=== PATIENT | male | born 1985 | race Caucasian/White ===

== ENCOUNTER 2017-01-08 13:32 | Emergency (ER) | payer OTHER ==
[~2017-01-08] VITALS: Ht 190.5 cm; Wt 105.6 kg
[2017-01-08 15:06] VITALS: BP 135/82
== END 2017-01-08 15:08 | disposition home or self-care (01) ==
LOC: M ED 15:07
DX: Z48.02 Encounter for removal of sutures (principal)

== ENCOUNTER 2017-04-03 22:22 | Emergency (ER) | payer OTHER ==
[~2017-04-03] VITALS: Ht 190.5 cm; Wt 100.0 kg
[2017-04-04] MEDS ORDERED: NORCOTAB PO (01:58)
[2017-04-04] MEDS ORDERED: CYCL10TA PO (01:58)
[2017-04-04] MEDS ORDERED: KETOROLAC TROMETHAMINE 10 MG TAB PO ONE (02:00)
[2017-04-04 02:07] VITALS: BP 135/81
== END 2017-04-04 02:07 | disposition home or self-care (01) ==
LOC: M ED 22:22
DX: M54.16 Radiculopathy, lumbar region (principal); G89.29 Other chronic pain; K21.9 Gastro-esophageal reflux disease without esophagitis; Z88.0 Allergy status to penicillin; Z88.1 Allergy status to other antibiotic agents; F17.210 Nicotine dependence, cigarettes, uncomplicated

== ENCOUNTER 2017-08-22 22:26 | Emergency (ER) | payer OTHER ==
[2017-08-22] MEDS: ONDANSETRON 4 MG ORAL DISINTEGRATING TAB (S0181) PO ×2 (23:04)
[2017-08-23] MEDS: AZITHROMYCIN 250 MG TAB PO ×2 (00:30)
[2017-08-23 00:45] LABS: INFLUENZA A AMPLIFICATION NEGATIVE (NEGATIVE); INFLUENZA B AMPLIFICATION NEGATIVE (NEGATIVE)
== END 2017-08-23 01:07 | disposition home or self-care (01) ==
LOC: M ED 08-23 01:07
DX: J02.0 Streptococcal pharyngitis (principal); F17.200 Nicotine dependence, unspecified, uncomplicated
CPT/HCPCS: 87502

== ENCOUNTER 2017-11-19 13:26 | Emergency (ER) | payer OTHER ==
[2017-11-19] MEDS: DERMABOND TOPICAL SKIN ADHESIVE TOP ×2 (14:00)
== END 2017-11-19 14:58 | disposition home or self-care (01) ==
LOC: M ED 13:26
DX: S01.411A Laceration without foreign body of right cheek and temporomandibular area, initial encounter (principal); Y04.8XXA Assault by other bodily force, initial encounter; Y92.098 Other place in other non-institutional residence as the place of occurrence of the external cause; F17.210 Nicotine dependence, cigarettes, uncomplicated; Z88.0 Allergy status to penicillin; Z88.1 Allergy status to other antibiotic agents; Z79.899 Other long term (current) drug therapy
CPT/HCPCS: 70486

== ENCOUNTER 2020-07-05 02:46 | Emergency (ER) | payer SELFPAY ==
[~2020-07-05 02:46] MED LIST: CYCL-707 PO; FLAG500T PO; HYDR-3715 PO; IBUP-1114 PO; OMEP10CASR PO; ZITHTAB PO
[2020-07-05 02:47] VITALS: BP 138/87
[2020-07-05] MEDS ORDERED: PRED20TA PO (04:47)
== END 2020-07-05 02:55 | disposition left against medical advice (07) ==
LOC: M ED 02:46
DX: Z53.21 Procedure and treatment not carried out due to patient leaving prior to being seen by health care provider (principal)

== ENCOUNTER → 2020-08-06 | Outpatient (REF) | payer OTHER ==
[~2020-08-06] MED LIST changes: +PRED20TA PO
== END ==
LOC: M LAB REF 15:21
PROVIDERS: ATTEND Otolaryngology
DX: K11.5 Sialolithiasis (principal)

== ENCOUNTER 2020-09-28 16:38 | Emergency (ER) | payer OTHER ==
[~2020-09-28] VITALS: Ht 188 cm; Wt 125.2 kg
[2020-09-28] MEDS ORDERED: PHEN-931 PO (17:01)
[2020-09-28] MEDS ORDERED: ALBUTEROL 90 MCG/ACT 8GM HFA INHALER INH ONE (18:05)
[2020-09-28] MEDS ORDERED: PANTOPRAZOLE 40MG VIAL (C9113 PER 1) IV ONE (18:05)
[2020-09-28] MEDS ORDERED: GI COCKTAIL 50ML BTL(HYOSCYAMINE/MAALOX/LIDOCAINE VISCOUS)(1:3:1) PO ONE (18:05)
[2020-09-28] MEDS ORDERED: methylPREDNISolone 125MG 2ML VIAL IV ONE (18:05)
--- NOTE | 2020-09-28 18:36 | REP ---
INDICATION: DYSPNEA/COUGH COMPARISON: None. TECHNIQUE: PA and lateral. FINDINGS: The mediastinum and cardiac silhouette are normal. The lung cordero are clear and without acute consolidation, effusion, or pneumothorax. The skeletal structures are intact and normal. IMPRESSION: No acute cardiopulmonary process. <Electronically signed by Benedicto Rico > 09/28/20 [id number]
[2020-09-28 19:10] LABS: VENOUS BASE EXCESS -1.1 (-2.0-2.0); VENOUS O2 SATURATION 98.2 % (60.0-80.0); VENOUS PARTIAL PRESSURE O2 106.3 mmHg (30.0-50.0); VENOUS PH 7.411 UNITS (7.330-7.430); VENOUS STANDARD HCO3 23.5 MEQ/L; VENOUS TOTAL CO2 24.1 MEQ/L (24.0-28.0)
[2020-09-28 19:13] LABS: BASO # 0.1 10^3/uL (0.0-0.2); BASO % 0.5 % (0.0-1.0); EOS # 0.4 10^3/uL (0.0-0.5); EOS % 2.5 % (0.0-3.0); HEMATOCRIT 45.9 % (42.0-52.0); HEMOGLOBIN 15.6 g/dl (13.5-17.5); LYMPH # 2.7 10^3/uL (1.5-5.0); LYMPH % 17.7 % (24.0-44.0); MEAN CORPUSCULAR HEMOGLOBIN 29.1 pg (27.0-33.0); MEAN CORPUSCULAR VOLUME 85.6 fl (80.0-96.0); MONO # 0.8 10^3/uL (0.0-0.8); MONO % 5.2 % (2.0-8.0); NEUTROPHILS # 11.2 10^3/uL (1.5-8.5); NEUTROPHILS % 73.7 % (36.0-66.0); PLATELET COUNT, AUTOMATED 284 10^3/uL (150-450); RED BLOOD COUNT 5.36 10^6/uL (4.30-6.10); WHITE BLOOD COUNT 15.1 10^3/uL (4.0-10.0)
[2020-09-28 19:45] LABS: ALBUMIN 3.9 GM/DL (3.2-5.2); ALT/SGPT 52 U/L (12-78); BILIRUBIN,DIRECT < 0.1 MG/DL (0.0-0.2); BILIRUBIN,TOTAL 0.4 MG/DL (0.2-1.0); BLOOD UREA NITROGEN 16 MG/DL (7-18); CARBON DIOXIDE LEVEL 24 MEQ/L (21-32); CHLORIDE LEVEL 106 MEQ/L (98-107); CK-MB VALUE MASS 1.4 NG/ML (<3.6); CPK CREATINE PHOSPHOKINASE 302 U/L (39-308); CREATININE FOR GFR 0.93 MG/DL (0.70-1.30); GLOMERULAR FILTRATION RATE > 60.0 (>60); GLUCOSE, FASTING 85 MG/DL (70-100); MB/CK RELATIVE INDEX 0.46 (< OR =4); SODIUM LEVEL 138 MEQ/L (136-145); THYROXINE (T4) 9.7 UG/DL (4.5-12.0); TOTAL PROTEIN 7.8 GM/DL (6.4-8.2); TROPONIN I 0.02 NG/ML (< 0.10)
[2020-09-28] MEDS ORDERED: ISOVUE-370 76% 100ML VIAL As Ordered ONE (20:34)
--- NOTE | 2020-09-28 21:36 | REPVR ---
PROCEDURE INFORMATION: Exam: CT Angiography Chest With Contrast Exam date and time: 09/28/2020 8:39 PM Age: 34 years old Clinical indication: Shortness of breath, sudden onset, chest pain, and elevated D-dimer. TECHNIQUE: Imaging protocol: Computed tomographic angiography of the chest with contrast. 3D rendering (Not supervised by radiologist): MIP and/or 3D reconstructed images were created by the technologist. Radiation optimization: All CT scans at this facility use at least one of these dose optimization techniques: automated exposure control; mA and/or kV adjustment per patient size (includes targeted exams where dose is matched to clinical indication); or iterative reconstruction. Contrast material: ISOVUE 370; Contrast volume: 75 ml; Contrast route: INTRAVENOUS (IV); COMPARISON: CR Chest, 2 view PA, Lat 09/28/2020 6:18 PM FINDINGS: Pulmonary arteries: There are filling defects in the segmental and subsegmental pulmonary arteries supplying the posterior segment of the right lower lobe and in the subsegmental pulmonary arteries supplying the posterior segment of the left lower lobe, which are compatible with acute pulmonary emboli. Aorta: The thoracic aorta is intact and patent. There is no thoracic aortic aneurysm, pseudoaneurysm, penetrating atherosclerotic ulcer, intramural hematoma, or dissection. Great vessels off aortic arch: The brachiocephalic artery, imaged proximal portions of the common carotid arteries, imaged proximal portions of the vertebral arteries, and subclavian arteries are intact. No stenosis or occlusion of these vessels is noted. Incidental note is made that the left vertebral artery arises directly from the aortic arch between the origin of the left common carotid artery and left subclavian artery. Trachea: Normal. Bronchial tree: Normal. Lungs: There is a 5 mm solid pulmonary nodule in the right upper lobe (image 29 of the axial series 402). The lungs are otherwise clear. There is no lung consolidation or pulmonary infarct. No emphysematous changes or interstitial lung disease is noted. Pleural spaces: Normal. No pneumothorax or pleural effusion. Heart: No cardiomegaly or pericardial effusion. The ratio of the diameter of the right ventricle to the diameter of the left ventricle measures less than 1, which is within normal limits and there is no CT evidence for a right ventricular strain. Mediastinal space: No mediastinal mass, fluid collection, or pneumomediastinum. Lymph nodes: No enlarged lymph nodes. Diaphragm: Intact. Bones/joints: There is no fracture or dislocation. No suspicious osteolytic or osteoblastic lesion. Soft tissues: Unremarkable. No soft tissue fluid collection. IMPRESSION: 1. Acute pulmonary emboli in the lower lobes. No pulmonary infarct or CT evidence for a right ventricular strain. 2. 5 mm solid pulmonary nodule in the right upper lobe. If the patient does not have known cancer, follow up should be based on clinical information because of the low risk of cancer in this age group. (Reference: Ashley) REFERENCES: Osmarhogenei H, et al. Guidelines for Management of Incidental Pulmonary Nodules Detected on CT Images: From the Fleischner Society 2017. Radiology. 2017;284(1):228-243. Electronically signed by: Jose Berry On 09/28/2020 21:37:11 PM
[2020-09-28] MEDS ORDERED: APIXABAN 5 MG TAB (ELIQUIS) PO ONE (21:55)
[2020-09-28] MEDS ORDERED: ELIQ5TAB PO (22:03)
[2020-09-28] MEDS ORDERED: PROAAER10 INH (22:03)
[2020-09-28] MEDS ORDERED: OMEP-218 PO (22:08)
[2020-09-28 22:42] VITALS: BP 149/88
[2020-09-28 22:56] LABS: INR 0.98; PROTHROMBIN TIME 13.2 SECONDS (12.5-14.3)
[2020-09-28 22:57] LABS: PARTIAL THROMBOPLASTIN TIME 30.7 SECONDS (24.2-38.5)
--- NOTE | 2020-09-29 07:12 | ECGEPIP ---
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
--- NOTE | 2020-09-29 09:15 | ED PDOC ---
Post-Departure Follow-Up dr vázquez faxed formal report of cta chest for fu Marla Cordova MD Sep 29, 2020 09:15
[2020-10-01 11:02] LABS: DRVV SCREEN 38.1 SEC
[2020-10-01 11:06] LABS: PTT LUPUS TYPE ANTICOAG SCREEN 0.9 (0-1.2)
[2020-10-05 14:08] LABS: ANTI THROMBIN 3 ANTIGEN IMMUNO 90 % (72-124); ANTI THROMBIN 3 FUNCT ACTIVITY 130 % (75-135); CARDIOLIPIN IGA ANTIBODY <9 APL U/mL (0-11); CARDIOLIPIN IGG ANTIBODY <9 GPL U/mL (0-14); CARDIOLIPIN IGM ANTIBODY 9 MPL U/mL (0-12); PHOSPHOLIPIDS LEVEL 314 mg/dL (150-250); PROTEIN C FUNCTIONAL ACTIVITY 143 % (73-180); PROTEIN S FUNCTIONAL ACTIVITY 127 % (63-140)
== END 2020-09-28 22:45 | disposition home or self-care (01) ==
LOC: M ED 16:38
DX: I26.99 Other pulmonary embolism without acute cor pulmonale (principal); R91.1 Solitary pulmonary nodule; K21.9 Gastro-esophageal reflux disease without esophagitis; J45.909 Unspecified asthma, uncomplicated; Z79.899 Other long term (current) drug therapy; Z79.01 Long term (current) use of anticoagulants; Z88.0 Allergy status to penicillin; Z88.1 Allergy status to other antibiotic agents; Z88.8 Allergy status to other drugs, medicaments and biological substances; Z91.048 Other nonmedicinal substance allergy status; F17.210 Nicotine dependence, cigarettes, uncomplicated
CPT/HCPCS: 71046; 71275; 80047; 80048; 80076; 81240; 82550; 82553; 82803; 84311; 84436; 84443; 85025; 85300; 85301; 85303; 85305; 85379; 85610; 85730; 86147; 93005; 94640; 96374; 96375; 99284; C9113; J2930; Q9967

== ENCOUNTER 2020-10-06 21:14 | Emergency (ER) | payer OTHER ==
[~2020-10-06] VITALS: Ht 188 cm; Wt 122.7 kg
[~2020-10-06 21:14] MED LIST changes: +ELIQ5TAB PO; +OMEP-218 PO; +PHEN-931 PO; +PROAAER10 INH
[2020-10-06 21:51] LABS: BASO # 0.1 10^3/uL (0.0-0.2); BASO % 0.8 % (0.0-1.0); EOS # 0.5 10^3/uL (0.0-0.5); EOS % 4.1 % (0.0-3.0); HEMATOCRIT 44.3 % (42.0-52.0); HEMOGLOBIN 15.1 g/dl (13.5-17.5); LYMPH # 2.8 10^3/uL (1.5-5.0); LYMPH % 24.7 % (24.0-44.0); MEAN CORPUSCULAR HEMOGLOBIN 29.3 pg (27.0-33.0); MEAN CORPUSCULAR HGB CONC 34.1 g/dl (32.0-36.5); MONO # 0.7 10^3/uL (0.0-0.8); MONO % 5.7 % (2.0-8.0); NEUTROPHILS # 7.3 10^3/uL (1.5-8.5); NEUTROPHILS % 64.3 % (36.0-66.0); PLATELET COUNT, AUTOMATED 284 10^3/uL (150-450); RED BLOOD COUNT 5.15 10^6/uL (4.30-6.10); WHITE BLOOD COUNT 11.3 10^3/uL (4.0-10.0)
[2020-10-06 22:01] LABS: INR 0.98; PROTHROMBIN TIME 13.2 SECONDS (12.5-14.3)
--- NOTE | 2020-10-06 22:09 | REPVR ---
PROCEDURE INFORMATION: Exam: XR Chest Exam date and time: 10/06/2020 9:49 PM Age: 34 years old Clinical indication: Chest pain; Type not specified TECHNIQUE: Imaging protocol: XR of the chest Views: 1 view. COMPARISON: CR Chest, 2 view PA, Lat 09/28/2020 6:18 PM FINDINGS: Lungs: Unremarkable. No consolidation. Pleural spaces: Unremarkable. No pleural effusion. No pneumothorax. Heart/Mediastinum: Unremarkable. No cardiomegaly. Bones/joints: Unremarkable. IMPRESSION: No acute findings. Electronically signed by: Blaze Wray On 10/06/2020 22:08:46 PM
[2020-10-06 22:26] LABS: ALBUMIN 3.9 GM/DL (3.2-5.2); ALT/SGPT 54 U/L (12-78); BILIRUBIN,DIRECT < 0.1 MG/DL (0.0-0.2); BILIRUBIN,TOTAL 0.3 MG/DL (0.2-1.0); BLOOD UREA NITROGEN 16 MG/DL (7-18); CALCIUM LEVEL 9.1 MG/DL (8.5-10.1); CARBON DIOXIDE LEVEL 25 MEQ/L (21-32); CHLORIDE LEVEL 105 MEQ/L (98-107); CK-MB VALUE MASS 1.4 NG/ML (<3.6); CPK CREATINE PHOSPHOKINASE 618 U/L (39-308); GLOMERULAR FILTRATION RATE > 60.0 (>60); GLUCOSE, FASTING 118 MG/DL (70-100); LIPASE 106 U/L (73-393); MB/CK RELATIVE INDEX 0.23 (< OR =4); POTASSIUM SERUM 3.7 MEQ/L (3.5-5.1); SODIUM LEVEL 136 MEQ/L (136-145); TOTAL PROTEIN 7.4 GM/DL (6.4-8.2); TROPONIN I < 0.02 NG/ML (< 0.10)
[2020-10-06] MEDS ORDERED: ISOVUE-370 76% 100ML VIAL As Ordered ONE (22:46)
--- NOTE | 2020-10-06 23:21 | REPVR ---
PROCEDURE INFORMATION: Exam: US Duplex Left Upper Extremity Veins, Limited Exam date and time: 10/06/2020 11:11 PM Age: 34 years old Clinical indication: Pain; Arm, upper; Left; Additional info: Pe, b/l leg pain, left arm pain TECHNIQUE: Imaging protocol: Real-time Duplex ultrasound of the Left Upper Extremity with 2-D perez scale, color Doppler flow and spectral waveform analysis with image documentation. Limited exam focused on the left upper extremity veins. COMPARISON: No relevant prior studies available. FINDINGS: Left deep veins: Internal jugular, subclavian, axillary and brachial veins patent without thrombus. Normal compressibility, augmentation response and/or Doppler waveforms. Left superficial veins: Visualized cephalic and basilic veins patent without thrombus. Soft tissues: Unremarkable. IMPRESSION: No sonographic evidence of deep vein thrombosis. Electronically signed by: Solomon Grajeda On 10/06/2020 23:22:05 PM
--- NOTE | 2020-10-06 23:36 | REPVR ---
PROCEDURE INFORMATION: Exam: US Duplex Lower Extremity Veins, Bilateral Exam date and time: 10/06/2020 11:11 PM Age: 34 years old Clinical indication: Pain; Leg, lower; Bilateral; Additional info: Pe, b/l leg pain, left arm pain TECHNIQUE: Imaging protocol: Real-time duplex ultrasound of the extremities with 2-D perez scale, color Doppler flow and spectral waveform analysis with image documentation. Complete exam focused on the bilateral lower extremity veins. COMPARISON: No relevant prior studies available. FINDINGS: Right deep veins: Unremarkable. The common femoral, femoral and popliteal veins are patent without thrombus. Normal Doppler waveforms. Normal compressibility and/or augmentation response. Right superficial veins: Saphenofemoral junction is patent without thrombus. Left deep veins: Unremarkable. The common femoral, femoral and popliteal veins are patent without thrombus. Normal Doppler waveforms. Normal compressibility and/or augmentation response. Left superficial veins: Saphenofemoral junction is patent without thrombus. Soft tissues: Unremarkable. IMPRESSION: No sonographic evidence of deep vein thrombosis. Electronically signed by: Solomon Grajeda On 10/06/2020 23:36:25 PM
--- NOTE | 2020-10-06 23:48 | REPVR ---
PROCEDURE INFORMATION: Exam: CT Angiography Chest With Contrast Exam date and time: 10/06/2020 10:01 PM Age: 34 years old Clinical indication: Shortness of breath; Additional info: Recent dx of b/l pe, sudden worsening SOB, cp TECHNIQUE: Imaging protocol: Computed tomographic angiography of the chest with contrast. 3D rendering (Not supervised by radiologist): MIP and/or 3D reconstructed images were created by the technologist. Radiation optimization: All CT scans at this facility use at least one of these dose optimization techniques: automated exposure control; mA and/or kV adjustment per patient size (includes targeted exams where dose is matched to clinical indication); or iterative reconstruction. Contrast material: ISO; Contrast volume: 75 ml; Contrast route: INTRAVENOUS (IV); COMPARISON: CT ANGIO CHEST 09/28/2020 8:40 PM FINDINGS: Pulmonary arteries: Contrast opacification suboptimal. Subsegmental bilateral pulmonary emboli, most conspicuous in the right greater than left lower lobes, similar to prior. Aorta: Unremarkable. No aneurysm or dissection. Lungs: Mild central peribronchial thickening, suggestive of airway inflammation. No consolidation. No mass. Pleural spaces: Unremarkable. No pneumothorax. No pleural effusion. Heart: Unremarkable. No cardiomegaly. No pericardial effusion. No right heart strain. Lymph nodes: No pathologically enlarged lymph nodes. Bones/joints: No acute osseous abnormality. Soft tissues: Unremarkable. IMPRESSION: 1. Subsegmental bilateral pulmonary emboli, most conspicuous in the right greater than left lower lobes, similar to prior. 2. Additional findings, as above. Electronically signed by: Solomon Grajeda On 10/06/2020 23:48:24 PM
[2020-10-07 01:04] VITALS: BP 137/76
--- NOTE | 2020-10-07 09:40 | ECGEPIP ---
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
== END 2020-10-07 01:07 | disposition home or self-care (01) ==
LOC: M ED 21:14
DX: I26.99 Other pulmonary embolism without acute cor pulmonale (principal); R79.89 Other specified abnormal findings of blood chemistry; J45.909 Unspecified asthma, uncomplicated; K21.9 Gastro-esophageal reflux disease without esophagitis; Z79.899 Other long term (current) drug therapy; Z79.01 Long term (current) use of anticoagulants; Z88.0 Allergy status to penicillin; Z88.8 Allergy status to other drugs, medicaments and biological substances; Z91.048 Other nonmedicinal substance allergy status; F17.210 Nicotine dependence, cigarettes, uncomplicated
CPT/HCPCS: 36415; 71045; 71275; 80048; 80076; 82550; 82553; 83690; 85025; 85610; 93005; 93041; 93970; 93971; 94760; 99285; Q9967

== ENCOUNTER 2020-10-22 11:06 | Emergency (ER) | payer OTHER ==
[~2020-10-22] VITALS: Ht 188 cm; Wt 127.6 kg
[2020-10-22] MEDS ORDERED: ZYRTTAB8 PO (11:32)
[2020-10-22] MEDS ORDERED: ISOVUE-370 76% 100ML VIAL As Ordered ONE (12:37)
--- NOTE | 2020-10-22 13:11 | REP ---
INDICATION: SOB; coughing up blood. COMPARISON: 10/06/2020 CT of the chest with IV contrast. TECHNIQUE: Chest CT with IV contrast, CT angiography. FINDINGS: The pulmonary arteries are suboptimally opacified. There are small emboli in the subsegmental lower lobe pulmonary arteries bilaterally, unchanged from the comparison study. There are no new pulmonary emboli. In particular, there are no emboli in the pulmonary trunk or central pulmonary arteries. However, there is a new 2.8 cm pleural-based lung nodule in the deep inferior posterior sulcus of the right lower lobe on image 74 as an interval change. This may represent a pulmonary hemorrhage. There are no other lung nodules or masses. There are no infiltrates or pleural effusions. There is no mediastinal, hilar or axillary lymph node enlargement. The thoracic aorta is unremarkable. Cardiac size normal. No pericardial effusion. The visualized upper abdominal contents are unremarkable and unchanged. IMPRESSION: Small pulmonary emboli in the subsegmental branches of the lower lobes bilaterally, not significantly changed. No new pulmonary emboli, in particular no central pulmonary emboli. There is a new 2.8 cm lung nodule in the deep inferior posterior sulcus of the right lower lobe as an interval change, possibly a pulmonary hemorrhage. <Electronically signed by Constantino Chew > 10/22/20 [id number]
[2020-10-22 14:18] LABS: BASO # 0.1 10^3/uL (0.0-0.2); BASO % 0.7 % (0.0-1.0); EOS # 0.4 10^3/uL (0.0-0.5); EOS % 4.5 % (0.0-3.0); HEMATOCRIT 43.6 % (42.0-52.0); HEMOGLOBIN 14.6 g/dl (13.5-17.5); LYMPH # 2.2 10^3/uL (1.5-5.0); LYMPH % 24.4 % (24.0-44.0); MEAN CORPUSCULAR HGB CONC 33.5 g/dl (32.0-36.5); MEAN CORPUSCULAR VOLUME 86.5 fl (80.0-96.0); MONO # 0.5 10^3/uL (0.0-0.8); NEUTROPHILS # 5.8 10^3/uL (1.5-8.5); NEUTROPHILS % 64.1 % (36.0-66.0); PLATELET COUNT, AUTOMATED 254 10^3/uL (150-450); RED BLOOD COUNT 5.04 10^6/uL (4.30-6.10)
[2020-10-22 14:35] VITALS: BP 124/74
--- NOTE | 2020-10-23 06:31 | ECGEPIP ---
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
--- NOTE | 2020-10-23 08:32 | ED PDOC ---
Post-Departure Follow-Up dr vázquez faxed formal report of ct chest for fu Marla Cordova MD Oct 23, 2020 08:32
== END 2020-10-22 15:14 | disposition home or self-care (01) ==
LOC: M ED 11:06
DX: J18.1 Lobar pneumonia, unspecified organism (principal); K21.9 Gastro-esophageal reflux disease without esophagitis; Z79.01 Long term (current) use of anticoagulants; Z87.891 Personal history of nicotine dependence; Z88.0 Allergy status to penicillin; Z88.1 Allergy status to other antibiotic agents; Z88.8 Allergy status to other drugs, medicaments and biological substances
CPT/HCPCS: 36415; 71275; 80047; 85025; 93005; 99284; Q9967